=== PATIENT | female | born 1990 | race Caucasian/White ===

== ENCOUNTER 2017-12-09 22:19 | Emergency (ER) | payer SELFPAY ==
[~2017-12-09] VITALS: Ht 154.9 cm; Wt 75.0 kg
[~2017-12-09 22:19] MED LIST: IBU600 MG PO; LOTRIMIN1% TP; MOTRIN 600600 MG/TAB PO; PERCOCET 325 MG1 TA2 PO; PRENATAL1 TA4 PO; [UNRECOGNIZED DRUG - OTHER] PO
[2017-12-09 22:24] VITALS: BP 115/63; TEMP 98.4
[2017-12-09] MEDS ORDERED: ALEVE LIQCAPS PO (22:43)
[2017-12-10 00:07] VITALS: PULSE 66
== END 2017-12-10 00:10 | disposition home or self-care (01) ==
LOC: COL.ER 22:19
DX: S99.911A Unspecified injury of right ankle, initial encounter (principal); X50.0XXA Overexertion from strenuous movement or load, initial encounter; Y92.009 Unspecified place in unspecified non-institutional (private) residence as the place of occurrence of the external cause
CPT/HCPCS: Q4045

== ENCOUNTER 2017-12-20 23:13 | Emergency (ER) | payer SELFPAY ==
[~2017-12-20] VITALS: Ht 160 cm; Wt 72.7 kg
[~2017-12-20 23:13] MED LIST changes: +ALEVE LIQCAPS PO
[2017-12-20 23:25] VITALS: TEMP 97.9
[2017-12-21 01:53] VITALS: BP 108/78; PULSE 78
== END 2017-12-21 02:26 | disposition home or self-care (01) ==
LOC: COL.ER 23:13
DX: S93.401A Sprain of unspecified ligament of right ankle, initial encounter (principal); X58.XXXA Exposure to other specified factors, initial encounter
CPT/HCPCS: Q4045

== ENCOUNTER 2018-11-22 23:12 | Emergency (ER) | payer SELFPAY ==
[2018-11-22 23:18] VITALS: TEMP 98.3
[2018-11-23 00:09] LABS: COLLECTION METHOD CLEAN CATCH
[2018-11-23 00:16] LABS: BASO # 0.1 (0.0-0.2); BASO % 0.6 % (0.0-2.0); EOS % 0.5 % (0-4.0); GRAN # 5.4 (1.4-6.5); GRAN % 62.2 % (42.2-75.2); HEMATOCRIT 39.7 % (37.0-47.0); HEMOGLOBIN 13.2 g/dl (12.5-16.0); LYMPH # 2.4 (1.2-3.4); LYMPH % 28.1 % (20.0-51.0); MEAN CELL VOLUME 94 fl (80.0-100.0); MEAN CORPUSCULAR HEMOGLOBIN 31 pg (27.0-31.0); MEAN CORPUSCULAR HGB CONC 33 g/dl (33.0-37.0); MEAN PLATELET VOLUME 10.1 fl (7.4-10.4); MONO # 0.7 (0.1-0.6); MONO % 8.4 % (1.7-9.3); PLATELET COUNT 310 K/mm3 (130-400); RED BLOOD COUNT 4.23 M/mm3 (4.10-5.30); REDCELL DISTRIBUTION WIDTH-CV 13.6 % (11.5-14.5)
[2018-11-23 00:17] LABS: MUCOUS Present /lpf; PH 6 (5-8); URINE APPEARANCE Cloudy; URINE BACTERIA Many /hpf; URINE BILIRUBIN Negative (NEGATIVE); URINE BLOOD 2+ (NEGATIVE); URINE COLOR Yellow; URINE GLUCOSE Negative (NEGATIVE); URINE KETONE Negative (NEGATIVE); URINE LEUKOCYTE ESTERASE Trace (NEGATIVE); URINE NITRATE Positive (NEGATIVE); URINE PROTEIN(semi-quant) Negative (NEGATIVE); URINE UROBILINOGEN Negative (NEGATIVE)
[2018-11-23 00:20] LABS: ALBUMIN 4.2 gm/dL (3.5-5.0); BILIRUBIN,TOTAL 0.7 mg/dL (0.0-1.0); CALCIUM 9.2 mg/dL (8.4-10.2); CREATININE, serum 0.82 (0.52-1.25); POTASSIUM 3.5 mmol/L (3.4-5.0); TOTAL PROTEIN 7.5 gm/dL (6.4-8.2)
[2018-11-23] MEDS ORDERED: CIPRO 500MG TA500 MG PO (01:54)
[2018-11-23 02:03] VITALS: BP 105/60; PULSE 64
== END 2018-11-23 02:07 | disposition home or self-care (01) ==
LOC: COL.ER 23:12
PROVIDERS: Emergency Medicine
DX: N39.0 Urinary tract infection, site not specified (principal)
CPT/HCPCS: A4216; J0696; J2765; J3010; J7030

== ENCOUNTER 2019-07-17 08:34 | Emergency (ER) | payer SELFPAY ==
[~2019-07-17] VITALS: Ht 152.4 cm; Wt 77.9 kg
[~2019-07-17 08:34] MED LIST changes: +CIPRO 500MG TA500 MG PO
[2019-07-17 08:45] VITALS: BP 104/62; TEMP 97.8
[2019-07-17] MEDS ORDERED: NEXPLANON68 MG ID (09:11)
[2019-07-17 09:37] VITALS: PULSE 62
== END 2019-07-17 09:35 | disposition home or self-care (01) ==
LOC: COL.ER 08:34
DX: S93.402A Sprain of unspecified ligament of left ankle, initial encounter (principal); X50.1XXA Overexertion from prolonged static or awkward postures, initial encounter; Y92.410 Unspecified street and highway as the place of occurrence of the external cause